=== PATIENT | female | born 1970 | race Caucasian/White ===

== ENCOUNTER → 2021-01-22 | Outpatient (CLI) | payer OTHER | LOC: RAD 07:45 | DX: B02.1 Zoster meningitis (principal); M48.02 Spinal stenosis, cervical region; M25.78 Osteophyte, vertebrae ==

== ENCOUNTER → 2021-01-29 | Outpatient (CLI) | payer OTHER | LOC: RAD 07:41 | DX: M47.814 Spondylosis without myelopathy or radiculopathy, thoracic region (principal); M48.04 Spinal stenosis, thoracic region; M40.204 Unspecified kyphosis, thoracic region; B02.1 Zoster meningitis ==